=== PATIENT | female | born 1935 | race Caucasian/White ===

== ENCOUNTER 2016-06-26 11:21 | Emergency (ER) | payer OTHER ==
[~2016-06-26] VITALS: Ht 167.6 cm; Wt 83.0 kg
[~2016-06-26 11:21] MED LIST: ACET-1757 PO; ASPI-621 PO; ATOR40TA PO; BISA10SU2 PR; CEFU500T PO; CLOP75TA22 PO; CYCL-259 PO; DIPH1TAB6 PO; DOXY100C2 PO; FENO145T13 PO; FENO160T PO; GLUC1CAP14 PO; GLUC1CAP40 PO; GUAI5SYR PO; LORA-439 PO; LORA10TA72 PO; LOSA50TA6 PO; LOVA40TA2 PO; MELO-190 PO; METF500T4 PO; METO-95 PO; MULT-208 PO; PROB500T22 PO; SPIR50TA2 PO
[2016-06-26] MEDS ORDERED: DILTIAZEM 5 MG/ML, 5ML ONE (11:32)
[2016-06-26] MEDS ORDERED: METOPROLOL 1 MG/ML, 5ML ONE (11:36)
[2016-06-26] MEDS ORDERED: SODIUM CHLORIDE FLUSH 10ML SYR IVF ONE (12:00)
[2016-06-26] MEDS ORDERED: METOPROLOL 1 MG/ML, 5ML IVPush ONE (12:00)
[2016-06-26] MEDS ORDERED: SODIUM CHLORIDE 0.9% 1,000ML IVBOLUS ONE (12:00)
[2016-06-26 12:01] LABS: HEMOGLOBIN 11.8 g/dL (11.7-16.4)
[2016-06-26 12:10] LABS: BLOOD UREA NITROGEN 18 mg/dL (7-18)
[2016-06-26 12:14] LABS: IS PT STATUS REG ER OR PRE ER? YES
[2016-06-26] MEDS ORDERED: METOPROLOL SUCCINATE 25 MG TAB.ER.24H PO ONE (14:00)
[2016-06-26 15:05] VITALS: BP 132/56
== END 2016-06-26 15:07 | disposition home or self-care (01) ==
LOC: ED 14:30
DX: R00.0 Tachycardia, unspecified (principal); I10 Essential (primary) hypertension; E11.9 Type 2 diabetes mellitus without complications; I25.10 Atherosclerotic heart disease of native coronary artery without angina pectoris; E78.00 Pure hypercholesterolemia, unspecified
CPT/HCPCS: 36415; 71010; 80048; 82040; 84484; 85025; 85379; 85610; 85730; 93005; 96361; 96374; 99285; J7030

== ENCOUNTER 2018-07-27 08:07 | Observation (INO) | payer MEDICARE ==
[~2018-07-27] VITALS: Ht 167.6 cm; Wt 82.1 kg
[~2018-07-27 08:07] MED LIST changes: -ASPI-621 PO; +ASPI81TA45 PO; -CLOP75TA22 PO; +CLOP75TA52 PO; -FENO145T13 PO; +FENO145T30 PO; -GLUC1CAP14 PO; +GLUCOSAMINE 1,1 EACH PO; +LOSA50TA14 PO; -LOSA50TA6 PO; -MELO-190 PO; +MELO7.5T31 PO; +METF500T17 PO; -METF500T4 PO; -SPIR50TA2 PO; +SPIR50TA4 PO
--- NOTE | 2018-07-27 08:53 | NUR ---
Patient brought in by EMS for reported sudden onset dull left sided chest aching radiating to left shoulder with associated palpitations. IV started by EMS prior to arrival, blood glucose 205mg/dL on scene, aspirin 324mg administered prior to arrival. Patient arrives awake and appropriate, reports no change in chest discomfort and describes it as "a dull ache, it's just discomfort, just enough so I notice it's there but it isn't pain". Call ramírez placed within reach, continuous blood pressure, SPO2 and cardiac monitoring in place, call ramírez within reach.
[2018-07-27] MEDS ORDERED: ASPIRIN 81 MG TABLET CHEW PO ONE (09:00)
[2018-07-27] MEDS ORDERED: SODIUM CHLORIDE FLUSH 10ML SYR IVF ONE (09:00)
[2018-07-27] MEDS ORDERED: SODIUM CHLORIDE 0.9% 1,000ML IVBOLUS ONE (09:00)
[2018-07-27 09:38] LABS: BASOPHILS # (AUTO) 0.02 x10^3/uL (0-0.1); BASOPHILS % (AUTO) 0 % (0-1); EOSINOPHILS # (AUTO) 0.05 x10^3/uL (0-0.4); EOSINOPHILS % (AUTO) 1 % (1-7); LYMPHOCYTES # (AUTO) 1.06 x10^3/uL (1-3.4); LYMPHOCYTES % (AUTO) 16 % (22-44); MD NO; MEAN CORPUSCULAR HEMOGLOBIN 27.4 pg (27.0-34.8); MEAN CORPUSCULAR HGB CONC 31.9 g/dL (32.4-35.8); MEAN CORPUSCULAR VOLUME 85.9 fL (80-100); MEAN PLATELET VOLUME 9.6 fL (7.4-10.4); MONOCYTES # (AUTO) 0.57 x10^3/uL (0.2-0.8); MONOCYTES % (AUTO) 9 % (2-9); NEUTROPHILS # (AUTO) 4.81 x10^3/uL (1.8-6.8); NEUTROPHILS % (AUTO) 74 % (42-75); PLATELET COUNT 170 x10^3/uL (130-400); RED BLOOD COUNT 4.36 x10^6/uL (3.82-5.3)
[2018-07-27 09:43] LABS: INTERNATIONAL NORMALIZED RATIO 0.95 (0.93-1.1)
[2018-07-27 09:53] LABS: ALBUMIN 3.5 g/dL (3.4-5.0); ANION GAP 5 mmol/L (5-15); CALCIUM 9.7 mg/dL (8.5-10.1); CHLORIDE 113 mmol/L (98-107); CREATININE 1.13 mg/dL (0.55-1.02)
[2018-07-27 09:56] LABS: TROPONIN I < 0.015 ng/mL (0.000-0.045)
[2018-07-27] MEDS ORDERED: CALC-451 PO (10:28)
[2018-07-27] MEDS ORDERED: LOSA50TA14 PO (10:28)
--- NOTE | 2018-07-27 10:29 | NUR ---
Patient up to restroom, ambulates independently with a steady gait. Back to bed, water provided and diet tray ordered, OK per Dr. Herrera.
--- NOTE | 2018-07-27 10:53 | NUR ---
Report to SHERRELL Rojas; care transferred at this time.
[2018-07-27] MEDS ORDERED: NITROGLYCERIN OINT 2%, 1GM TP ONE ×2 (11:00→11:25)
[2018-07-27] MEDS ORDERED: GLUCAGON 1 MG IM PRN (11:30)
[2018-07-27] MEDS ORDERED: DOCUSATE 100 MG CAPSULE PO PRN (11:30)
[2018-07-27] MEDS ORDERED: NITROGLYCERIN 0.4 MG BOTTLE (25 TABS) SL PRN ×2 (11:30)
[2018-07-27] MEDS ORDERED: NITROGLYCERIN 0.4 MG/SPRAY SL PRN (11:30)
[2018-07-27] MEDS ORDERED: DEXTROSE 50%, 50ML SYRINGE IVPush PRN (11:30)
[2018-07-27] MEDS ORDERED: GUAIFENESIN/DM 200-20MG, 10ML UDC PO PRN (11:30)
[2018-07-27] MEDS ORDERED: LIDODERM 5% PATCH TD PRN (11:30)
[2018-07-27] MEDS ORDERED: DEXTROSE 4 GM TAB.CHEW PO PRN (11:30)
[2018-07-27] MEDS ORDERED: ONDANSETRON ODT 4 MG PO PRN (11:30)
[2018-07-27] MEDS ORDERED: hydrALAzine 20 MG/ML, 1ML IVPush PRN (11:30)
--- NOTE | 2018-07-27 11:38 | NUR ---
REPORT FROM MAGDALENE WYNNE AT 1100. PT C/O SLIGHT ACHE TO L CHEST AND FEELING COLD. WARM BLANKET PROVIDED, NTG PASTE GIVEN PER ERP ORDER. BP 170/63, DOWN NOW TO 153/54. CALL LIGHT WITHIN REACH, AWAITING ADMIT ROOM
--- NOTE | 2018-07-27 11:53 | NUR ---
REPORT TO JIMMY WYNNE, PT READY FOR TRANSPORT TO FLOOR.
[2018-07-27 12:04] LABS: TROPONIN I 0.024 ng/mL (0.000-0.045)
[2018-07-27 12:10] LABS: THYROID STIMULATING HORMONE 0.834 mIU/L (0.358-3.740)
[2018-07-27 12:22] VITALS: BP 176/81
[2018-07-27 12:50] VITALS: BP 147/78
[2018-07-27 13:00] VITALS: BP_SYST 147; BP_SYST 157; BP_DIAS 74; BP_DIAS 79
[2018-07-27 13:04] LABS: HEMOGLOBIN A1C 7.8 % (4.2-6.3)
[2018-07-27 13:22] VITALS: BP 152/74
[2018-07-27 13:23] VITALS: BP_SYST 151; BP_SYST 167; BP_DIAS 79
[2018-07-27] MEDS: HEPARIN 5,000 UNITS/ML, 1ML SQ SCH ×2 (13:59→21:40)
[2018-07-27] MEDS: ACETAMINOPHEN 325 MG TABLET PO PRN (13:59)
[2018-07-27] MEDS ORDERED: MAGNESIUM SULFATE 1 GM in SODIUM CHLORIDE 0.9% 50 ML IV ONE (15:30)
[2018-07-27] MEDS ORDERED: MAGNESIUM SULFATE PMX 2GM/50ML 0 ML ONE (16:32)
[2018-07-27 16:39] LABS: MICROSCOPIC AUTO
[2018-07-27 16:43] LABS: CULTURE INDICATED? YES
[2018-07-27] MEDS: SODIUM CHLORIDE FLUSH 10ML SYR IVF SCH ×2 (16:55→21:40)
[2018-07-27 17:29] LABS: TROPONIN I 0.059 ng/mL (0.000-0.045)
[2018-07-27] MEDS ORDERED: SIMETHICONE 80 MG CHEW TAB PO PRN (17:30)
[2018-07-27] MEDS: INSULIN LISPRO 100 UNITS/ML, PEN SQ-INSULIN SCH ×2 (17:57→21:41)
[2018-07-27 19:11] VITALS: BP 152/69
[2018-07-27] MEDS ORDERED: ALUMINUM/MAG/SIMETHICONE 30 ML UDC PO PRN (20:00)
[2018-07-27] MEDS ORDERED: ATORVASTATIN 40 MG TABLET PO SCH (21:00)
[2018-07-27] MEDS ORDERED: FENOFIBRATE 145 MG TABLET PO SCH (21:00)
[2018-07-27] MEDS ORDERED: [UNRECOGNIZED DRUG - OTHER] PO SCH (21:00)
[2018-07-27] MEDS ORDERED: ASPIRIN 81 MG TABLET EC PO SCH (21:00)
[2018-07-27] MEDS: PROBENECID 500 MG TABLET PO SCH (21:40)
[2018-07-28 00:42] VITALS: BP 158/64
[2018-07-28 05:05] LABS: BASOPHILS # (AUTO) 0.02 x10^3/uL (0-0.1); BASOPHILS % (AUTO) 0 % (0-1); EOSINOPHILS # (AUTO) 0.09 x10^3/uL (0-0.4); EOSINOPHILS % (AUTO) 2 % (1-7); LYMPHOCYTES # (AUTO) 1.35 x10^3/uL (1-3.4); LYMPHOCYTES % (AUTO) 24 % (22-44); MD NO; MEAN CORPUSCULAR HEMOGLOBIN 28.7 pg (27.0-34.8); MEAN CORPUSCULAR HGB CONC 33.8 g/dL (32.4-35.8); MEAN CORPUSCULAR VOLUME 84.8 fL (80-100); MEAN PLATELET VOLUME 9.9 fL (7.4-10.4); MONOCYTES # (AUTO) 0.51 x10^3/uL (0.2-0.8); MONOCYTES % (AUTO) 9 % (2-9); NEUTROPHILS # (AUTO) 3.76 x10^3/uL (1.8-6.8); NEUTROPHILS % (AUTO) 66 % (42-75); PLATELET COUNT 162 x10^3/uL (130-400); RED BLOOD COUNT 3.83 x10^6/uL (3.82-5.3); RED CELL DISTRIBUTION WIDTH 14.9 % (9.6-15.2)
[2018-07-28 05:12] LABS: CHLORIDE 113 mmol/L (98-107)
[2018-07-28 05:12] LABS: CLOSTRIDIUM DIFFICILE ANTIGEN NEGATIVE; CLOSTRIDIUM DIFFICILE TOXIN NEGATIVE (Negative)
[2018-07-28] MEDS: ACETAMINOPHEN 325 MG TABLET PO PRN ×2 (05:20→11:40)
[2018-07-28] MEDS: HEPARIN 5,000 UNITS/ML, 1ML SQ SCH ×2 (05:20→13:15)
[2018-07-28 05:23] LABS: ANION GAP 7 mmol/L (5-15); CALCIUM 9.3 mg/dL (8.5-10.1); CHOL/HDL RATIO 2.7; CHOLESTEROL, TOTAL 106 mg/dL (140-239); CREATININE 1.02 mg/dL (0.55-1.02); HDL CHOL % 37 % (28-40); HDL CHOLESTEROL (DIRECT) 39 mg/dL (40-60); LDL CHOLESTEROL,CALCULATED 20 mg/dL (54-169); LDL/HDL RATIO 0.5 (0.5-3.0); TRIGLYCERIDES 236 mg/dL (50-200); TROPONIN I 0.055 ng/mL (0.000-0.045); VLDL CHOLESTEROL 47 mg/dL (0-25)
[2018-07-28] MEDS ORDERED: PANTOPRAZOLE 20MG TABLET PO SCH (06:00)
[2018-07-28 07:13] VITALS: BP 133/70
[2018-07-28] MEDS ORDERED: REGADENOSON 0.4 MG/5 ML SYRINGE ONE (08:16)
[2018-07-28] MEDS ORDERED: CALCIUM/VITAMIN D3 250-125 TABLET PO SCH (09:00)
[2018-07-28] MEDS ORDERED: METOPROLOL SUCCINATE 100 MG TAB.ER.24H PO SCH (09:00)
[2018-07-28] MEDS: SODIUM CHLORIDE FLUSH 10ML SYR IVF SCH (09:00)
[2018-07-28] MEDS ORDERED: LORATADINE 10 MG TABLET PO SCH (09:00)
[2018-07-28] MEDS ORDERED: MULTIVITAMIN 1 TABLET PO SCH (09:00)
[2018-07-28] MEDS ORDERED: LOSARTAN 50MG TABLET PO SCH (09:00)
[2018-07-28] MEDS: INSULIN LISPRO 100 UNITS/ML, PEN SQ-INSULIN SCH ×2 (11:00→11:34)
[2018-07-28] MEDS: PROBENECID 500 MG TABLET PO SCH (11:33)
[2018-07-28] MEDS ORDERED: LEVOFLOXACIN 750 MG TABLET PO SCH (12:30)
[2018-07-28 13:10] VITALS: BP 128/72
[2018-07-28] MEDS ORDERED: SIME80TA16 PO (17:33)
[2018-07-28] MEDS ORDERED: PANT20TA3 PO (17:33)
[2018-07-28] MEDS ORDERED: LEVO750T26 PO (17:39)
== END 2018-07-28 18:46 | disposition home or self-care (01) ==
LOC: ED 09:25 → INTOOBSV 10:49 → EDIP 10:49 → UNDOADMOB 10:49 → EDIP 11:17 → 5SO 12:03 → UNDODISOB 07-28 18:46
PROVIDERS: ADMIT Internal Medicine; ATTEND Internal Medicine
DX: R07.89 Other chest pain (principal); K21.9 Gastro-esophageal reflux disease without esophagitis; R14.2 Eructation; I25.10 Atherosclerotic heart disease of native coronary artery without angina pectoris; I10 Essential (primary) hypertension; E11.9 Type 2 diabetes mellitus without complications; E78.00 Pure hypercholesterolemia, unspecified; D68.59 Other primary thrombophilia; M10.9 Gout, unspecified; F41.9 Anxiety disorder, unspecified; I25.2 Old myocardial infarction; I48.91 Unspecified atrial fibrillation; Z95.5 Presence of coronary angioplasty implant and graft; Z79.899 Other long term (current) drug therapy
CPT/HCPCS: 36415; 71045; 78452; 80048; 80061; 81001; 82040; 82962; 83036; 83735; 83880; 84439; 84443; 84484; 85025; 85610; 85730; 87077; 87086; 87186; 87324; 93005; 93017; 96365; 96372; 99284; A9502; C8929; C9898; G0378; J1644; J1815; J2785; J3475; J7030; Q9957

== ENCOUNTER 2019-04-03 21:58 | Observation (INO) | payer MEDICARE ==
[~2019-04-03] VITALS: Ht 167.6 cm; Wt 81.1 kg
[~2019-04-03 21:58] MED LIST changes: -ACET-1757 PO; +ACET-2065 PO; -BISA10SU2 PR; +BISA10SU4 PR; +CALC-451 PO; +FENO145T19 PO; -FENO145T30 PO; +LEVO750T26 PO; +PANT20TA3 PO; +SIME80TA16 PO
--- NOTE | 2019-04-03 22:10 | NUR ---
PT BIB EMS FROM HOME AFTER "FEELING LIKE HEART IS RACING" CAUSED SOME SOB. GIVEN [address] [employer]. IV IN PLACE [facility]. UPON ARRIVAL TO ER NO C/O PAIN. HR ORIGINALLY 140 BUT NOW 120. CONNECTED TO ALL MONITORING, TAHY HR AND HTN (STS DIDNT TAKE METOPROLOL TODAY). EKG DONE, MD AWARE. MD AT BEDSIDE FOR ASSESSMENT. AWAITING ORDERS AT THIS TIME. CALL LIGHT WITHIN REACH
[2019-04-03] MEDS ORDERED: METOPROLOL TARTRATE 50 MG TAB ONE (22:18)
[2019-04-03] MEDS ORDERED: LABETALOL 5MG/ML, 20ML ONE (22:18)
--- NOTE | 2019-04-03 22:27 | NUR ---
RAD COMPLETE. PT MEDICATED PER MAR
[2019-04-03] MEDS ORDERED: METOPROLOL TARTRATE 50 MG TAB PO ONE (22:30)
[2019-04-03] MEDS ORDERED: LABETALOL 5MG/ML, 20ML IVPush ONE (22:30)
--- NOTE | 2019-04-03 22:44 | NUR ---
REPORT GIVEN TO BONNIE WYNNE
[2019-04-03 22:51] LABS: BASOPHILS # (AUTO) 0.02 x10^3/uL (0-0.1); BASOPHILS % (AUTO) 0 % (0-1); EOSINOPHILS % (AUTO) 2 % (1-7); LYMPHOCYTES # (AUTO) 1.23 x10^3/uL (1-3.4); LYMPHOCYTES % (AUTO) 23 % (22-44); MD NO; MEAN CORPUSCULAR HEMOGLOBIN 27.7 pg (27.0-34.8); MEAN CORPUSCULAR HGB CONC 32.9 g/dL (32.4-35.8); MEAN CORPUSCULAR VOLUME 84.3 fL (80-100); MEAN PLATELET VOLUME 9.5 fL (7.4-10.4); MONOCYTES % (AUTO) 9 % (2-9); NEUTROPHILS # (AUTO) 3.59 x10^3/uL (1.8-6.8); NEUTROPHILS % (AUTO) 66 % (42-75); PLATELET COUNT 169 x10^3/uL (130-400); RED BLOOD COUNT 4.04 x10^6/uL (3.82-5.3); RED CELL DISTRIBUTION WIDTH 15.2 % (9.6-15.2)
--- NOTE | 2019-04-03 22:53 | NUR ---
Received report and assumed patient care. Reviewed patient's prior medical history especially cardiac history regarding stent placement in 2015. Also covered reason for calling EMS and tachycardia which is now improved/resolved. HR now in 90's (down from 160's per patient) and blood pressure has improved to 120 systolic (down fro 180's) and reviewed interventions completed in ER including administration of medications to improve heart rate. Patient just had labs drawn. Awaiting results prior to reassessment by provider.
[2019-04-03 23:01] LABS: ALBUMIN 3.2 g/dL (3.4-5.0); ANION GAP 7 mmol/L (5-15); CALCIUM 8.5 mg/dL (8.5-10.1); CHLORIDE 115 mmol/L (98-107); CREATININE 1.09 mg/dL (0.55-1.02)
[2019-04-03 23:05] LABS: TROPONIN I < 0.015 ng/mL (0.000-0.045)
[2019-04-04] MEDS ORDERED: BISACODYL 10 MG SUPP PR PRN (00:30)
[2019-04-04] MEDS ORDERED: PROMETHAZINE 25 MG/ML, 1ML IM PRN (00:30)
[2019-04-04] MEDS ORDERED: ONDANSETRON 2MG/ML, 2ML IVPush PRN (00:30)
[2019-04-04] MEDS ORDERED: ACETAMINOPHEN 325 MG TABLET PO PRN (00:30)
[2019-04-04] MEDS ORDERED: hydrALAzine 20 MG/ML, 1ML IVPush PRN (00:30)
[2019-04-04] MEDS ORDERED: DOCUSATE 100 MG CAPSULE PO PRN (00:30)
[2019-04-04] MEDS ORDERED: POLYETHYLENE GLYCOL 17 GM PACKET PO PRN (00:30)
[2019-04-04] MEDS ORDERED: HYDROcodone/APAP 5/325 TABLET PO PRN (00:30)
[2019-04-04] MEDS ORDERED: ONDANSETRON ODT 4 MG PO PRN (00:30)
[2019-04-04] MEDS ORDERED: ASPIRIN 81 MG TABLET EC ONE (01:07)
[2019-04-04] MEDS ORDERED: ENOXAPARIN 40 MG/0.4 ML ONE (01:07)
[2019-04-04 01:10] LABS: FREE T4 (FREE THYROXINE) 0.83 ng/dL (0.76-1.46)
[2019-04-04] MEDS: ASPIRIN 81 MG TABLET EC PO SCH ×2 (01:12→20:00)
[2019-04-04] MEDS: ENOXAPARIN 40 MG/0.4 ML SQ SCH (01:44)
[2019-04-04] MEDS: SODIUM CHLORIDE 0.9% 1,000 ML IV SCH ×2 (01:45→14:41)
[2019-04-04 02:03] LABS: TROPONIN I 0.021 ng/mL (0.000-0.045)
[2019-04-04] MEDS ORDERED: MAGNESIUM SULFATE PMX 2GM/50ML 50 ML IV ONE (02:30)
[2019-04-04] MEDS: FENOFIBRATE 145 MG TABLET PO SCH ×2 (02:48→20:01)
[2019-04-04 04:42] VITALS: BP 152/74
[2019-04-04] MEDS: PANTOPRAZOLE 20MG TABLET PO SCH (05:56)
[2019-04-04 07:02] LABS: MICROSCOPIC INDICATED
[2019-04-04 07:39] VITALS: BP 151/71
[2019-04-04] MEDS: CALCIUM/VITAMIN D3 250-125 TABLET PO SCH (09:00)
[2019-04-04] MEDS: METOPROLOL SUCCINATE 100 MG TAB.ER.24H PO SCH (09:00)
[2019-04-04 09:20] LABS: BASOPHILS # (AUTO) 0.02 x10^3/uL (0-0.1); BASOPHILS % (AUTO) 0 % (0-1); EOSINOPHILS # (AUTO) 0.11 x10^3/uL (0-0.4); EOSINOPHILS % (AUTO) 2 % (1-7); LYMPHOCYTES % (AUTO) 26 % (22-44); MD NO; MEAN CORPUSCULAR HEMOGLOBIN 27.4 pg (27.0-34.8); MEAN CORPUSCULAR VOLUME 85.8 fL (80-100); MEAN PLATELET VOLUME 9.3 fL (7.4-10.4); MONOCYTES # (AUTO) 0.54 x10^3/uL (0.2-0.8); MONOCYTES % (AUTO) 9 % (2-9); NEUTROPHILS # (AUTO) 3.58 x10^3/uL (1.8-6.8); NEUTROPHILS % (AUTO) 62 % (42-75); PLATELET COUNT 178 x10^3/uL (130-400); RED BLOOD COUNT 4.03 x10^6/uL (3.82-5.3); RED CELL DISTRIBUTION WIDTH 15.4 % (9.6-15.2)
[2019-04-04 09:32] LABS: TROPONIN I 0.018 ng/mL (0.000-0.045)
[2019-04-04 09:36] LABS: ALANINE AMINOTRANSFERASE 16 U/L (12-78); ALBUMIN 3.1 g/dL (3.4-5.0); ANION GAP 7 mmol/L (5-15); CALCIUM 8.1 mg/dL (8.5-10.1); CHLORIDE 114 mmol/L (98-107); CREATININE 0.93 mg/dL (0.55-1.02)
[2019-04-04 09:39] LABS: ALKALINE PHOSPHATASE 73 U/L (45-117); BILIRUBIN,TOTAL 0.2 mg/dL (0.2-1.0); TOTAL PROTEIN 6.3 g/dL (6.4-8.2)
[2019-04-04] MEDS ORDERED: LOSARTAN 25MG TABLET ONE (09:57)
[2019-04-04] MEDS: LOSARTAN 50MG TABLET PO SCH (09:58)
[2019-04-04] MEDS: LORATADINE 10 MG TABLET PO SCH (09:59)
[2019-04-04] MEDS: metFORMIN 500 MG TABLET PO SCH ×2 (10:00→20:00)
[2019-04-04] MEDS: MULTIVITAMIN 1 TABLET PO SCH (10:00)
[2019-04-04] MEDS: PROBENECID 500 MG TABLET PO SCH ×2 (10:00→20:01)
[2019-04-04] MEDS ORDERED: METO-99 PO (10:14)
[2019-04-04] MEDS ORDERED: GLUC1CAP48 PO (10:14)
[2019-04-04] MEDS ORDERED: METO-95 PO (10:55)
[2019-04-04 12:54] VITALS: BP 140/78
[2019-04-04 19:22] VITALS: BP 129/69
[2019-04-04] MEDS ORDERED: METOPROLOL TARTRATE 50 MG TAB PO ONE (21:00)
[2019-04-05] MEDS: ENOXAPARIN 40 MG/0.4 ML SQ SCH (00:33)
[2019-04-05 00:40] VITALS: BP 120/69
[2019-04-05 05:05] LABS: BASOPHILS # (AUTO) 0.04 x10^3/uL (0-0.1); BASOPHILS % (AUTO) 1 % (0-1); EOSINOPHILS # (AUTO) 0.15 x10^3/uL (0-0.4); EOSINOPHILS % (AUTO) 2 % (1-7); LYMPHOCYTES # (AUTO) 2.13 x10^3/uL (1-3.4); LYMPHOCYTES % (AUTO) 35 % (22-44); MD NO; MEAN CORPUSCULAR HEMOGLOBIN 27.3 pg (27.0-34.8); MEAN CORPUSCULAR HGB CONC 32.2 g/dL (32.4-35.8); MEAN PLATELET VOLUME 10.1 fL (7.4-10.4); MONOCYTES # (AUTO) 0.61 x10^3/uL (0.2-0.8); MONOCYTES % (AUTO) 10 % (2-9); NEUTROPHILS # (AUTO) 3.17 x10^3/uL (1.8-6.8); NEUTROPHILS % (AUTO) 52 % (42-75); PLATELET COUNT 176 x10^3/uL (130-400); RED BLOOD COUNT 3.52 x10^6/uL (3.82-5.3); RED CELL DISTRIBUTION WIDTH 14.7 % (9.6-15.2)
[2019-04-05 05:12] LABS: ALANINE AMINOTRANSFERASE 13 U/L (12-78); ALBUMIN 2.8 g/dL (3.4-5.0); ANION GAP 5 mmol/L (5-15); CALCIUM 8.7 mg/dL (8.5-10.1); CHLORIDE 115 mmol/L (98-107)
[2019-04-05 05:17] LABS: ALKALINE PHOSPHATASE 51 U/L (45-117); BILIRUBIN,TOTAL 0.4 mg/dL (0.2-1.0); CHOL/HDL RATIO 3.8; CHOLESTEROL, TOTAL 147 mg/dL (140-239); HDL CHOL % 27 % (28-40); HDL CHOLESTEROL (DIRECT) 39 mg/dL (40-60); LDL CHOLESTEROL,CALCULATED 77 mg/dL (54-169); TOTAL PROTEIN 5.6 g/dL (6.4-8.2); TRIGLYCERIDES 157 mg/dL (50-200); VLDL CHOLESTEROL 31 mg/dL (0-25)
[2019-04-05] MEDS: PANTOPRAZOLE 20MG TABLET PO SCH (06:04)
[2019-04-05 07:29] VITALS: BP 136/71
[2019-04-05 09:31] VITALS: BP 156/75
[2019-04-05] MEDS: CALCIUM/VITAMIN D3 250-125 TABLET PO SCH (09:42)
[2019-04-05] MEDS: PROBENECID 500 MG TABLET PO SCH (09:43)
[2019-04-05] MEDS: FENOFIBRATE 145 MG TABLET PO SCH (09:43)
[2019-04-05] MEDS: LORATADINE 10 MG TABLET PO SCH (09:43)
[2019-04-05] MEDS: MULTIVITAMIN 1 TABLET PO SCH (09:43)
[2019-04-05] MEDS: metFORMIN 500 MG TABLET PO SCH (09:43)
[2019-04-05] MEDS: LOSARTAN 50MG TABLET PO SCH (09:43)
[2019-04-05] MEDS: METOPROLOL SUCCINATE 100 MG TAB.ER.24H PO SCH (09:47)
== END 2019-04-05 13:15 | disposition home or self-care (01) ==
LOC: ED 04-04 00:02 → EDIP 04-04 00:17 → INTOOBSV 04-04 00:17 → 5SO 04-04 02:12 → DCLOUNGE 04-05 13:02
PROVIDERS: ADMIT Internal Medicine; ATTEND Internal Medicine
DX: R00.2 Palpitations (principal); R00.0 Tachycardia, unspecified; M10.9 Gout, unspecified; K21.9 Gastro-esophageal reflux disease without esophagitis; I48.91 Unspecified atrial fibrillation; E87.2 Acidosis; I25.10 Atherosclerotic heart disease of native coronary artery without angina pectoris; E78.5 Hyperlipidemia, unspecified; I25.2 Old myocardial infarction; I10 Essential (primary) hypertension; E11.65 Type 2 diabetes mellitus with hyperglycemia; C50.919 Malignant neoplasm of unspecified site of unspecified female breast; Z79.82 Long term (current) use of aspirin; Z79.84 Long term (current) use of oral hypoglycemic drugs; Z87.891 Personal history of nicotine dependence
CPT/HCPCS: 36415; 71045; 80048; 80053; 80061; 81001; 82040; 83036; 83735; 84439; 84443; 84484; 85025; 85379; 87086; 93005; 96361; 96372; 96374; 96375; 99284; G0378; J1650; J3475; J7030

== ENCOUNTER 2019-11-14 14:54 | Emergency (ER) | payer MEDICARE ==
[~2019-11-14] VITALS: Ht 167.6 cm; Wt 77.0 kg
[~2019-11-14 14:54] MED LIST changes: +GLUC1CAP48 PO; +METO-99 PO
--- NOTE | 2019-11-14 15:07 | NUR ---
PT BIB [facility] FOR C/O OF TACHYCARDIA. PT STATES SHE IS DEHYDRATED, AND HAS BEEN ANXIOUS. HR 154 ON [facility] ARRIVAL, GIVEN 350ML NS EN ROUTE, PT HR 122 ON ARRIVAL. HAS Hx OF THIS HAPPENING BEFORE IN 2011. DIAGNOSIS OF A-FIB. +ASA PT ATTACHED TO MONITORS, GIVEN WARM BLANKETS. EKG COMPLETED. DENIES ANY FURTHER NEEDS AT THIS TIME, CALL LIGHT IN REACH.
[2019-11-14] MEDS ORDERED: SODIUM CHLORIDE FLUSH 10ML SYR IVF ONE (16:00)
[2019-11-14 16:25] LABS: BASOPHILS # (AUTO) 0.02 x10^3/uL (0-0.1); BASOPHILS % (AUTO) 0 % (0-1); EOSINOPHILS # (AUTO) 0.08 x10^3/uL (0-0.4); EOSINOPHILS % (AUTO) 1 % (1-7); LYMPHOCYTES # (AUTO) 0.93 x10^3/uL (1-3.4); LYMPHOCYTES % (AUTO) 14 % (22-44); MD NO; MEAN CORPUSCULAR HEMOGLOBIN 27.4 pg (27.0-34.8); MEAN CORPUSCULAR HGB CONC 32.6 g/dL (32.4-35.8); MEAN PLATELET VOLUME 9.5 fL (7.4-10.4); MONOCYTES # (AUTO) 0.64 x10^3/uL (0.2-0.8); MONOCYTES % (AUTO) 10 % (2-9); NEUTROPHILS # (AUTO) 5.06 x10^3/uL (1.8-6.8); NEUTROPHILS % (AUTO) 75 % (42-75); PLATELET COUNT 172 x10^3/uL (130-400); RED BLOOD COUNT 4.21 x10^6/uL (3.82-5.3); RED CELL DISTRIBUTION WIDTH 14.9 % (9.6-15.2)
[2019-11-14 16:29] LABS: ALBUMIN 3.5 g/dL (3.4-5.0); ANION GAP 6 mmol/L (5-15); CALCIUM 8.5 mg/dL (8.5-10.1); CHLORIDE 111 mmol/L (98-107)
[2019-11-14 16:34] LABS: FREE T4 (FREE THYROXINE) 1.02 ng/dL (0.76-1.46); TROPONIN I < 0.015 ng/mL (0.000-0.045)
[2019-11-14 18:04] VITALS: BP 153/56
== END 2019-11-14 18:18 | disposition home or self-care (01) ==
LOC: ED 16:20
DX: R00.2 Palpitations (principal); R07.89 Other chest pain; R06.00 Dyspnea, unspecified; I10 Essential (primary) hypertension; E11.9 Type 2 diabetes mellitus without complications; I48.91 Unspecified atrial fibrillation; I25.2 Old myocardial infarction; I25.10 Atherosclerotic heart disease of native coronary artery without angina pectoris; R00.0 Tachycardia, unspecified; Z87.891 Personal history of nicotine dependence; Z90.10 Acquired absence of unspecified breast and nipple
CPT/HCPCS: 36415; 71045; 80048; 82040; 83735; 84439; 84443; 84484; 85025; 93005; 99285

== ENCOUNTER → 2019-12-12 | Outpatient (CLI) | payer MEDICARE ==
[~2019-12-12] MED LIST changes: -PANT20TA3 PO; +PANT20TA4 PO
== END | disposition home or self-care (01) ==
LOC: CVU 14:32
PROVIDERS: ATTEND Nurse Practitioner Family
DX: I08.8 Other rheumatic multiple valve diseases (principal); I10 Essential (primary) hypertension; I25.10 Atherosclerotic heart disease of native coronary artery without angina pectoris
CPT/HCPCS: C8929; Q9957

== ENCOUNTER 2020-08-30 21:36 | Inpatient (IN) | payer MEDICARE ==
[~2020-08-30] VITALS: Ht 165.1 cm; Wt 80.4 kg
[~2020-08-30 21:36] MED LIST changes: -CYCL-259 PO; +CYCL10TA2 PO
--- NOTE | 2020-08-30 21:42 | NUR ---
THIS IS AN 84F BIB EMS FROM HOME FOR WORSENING SOB AND FEVER, PT FOUND TO BE 87% RA PER EMS, PT DENIES RESP HX. PT CONNECTED TO ALL MONITORING.
[2020-08-30] MEDS ORDERED: CEFTRIAXONE 1,000 MG in DEXTROSE 5% 50 ML IVPB ONE (22:30)
[2020-08-30] MEDS ORDERED: AZITHROMYCIN 500 MG in SODIUM CHLORIDE 0.9% 250 ML IV ONE (22:30)
[2020-08-30] MEDS ORDERED: SODIUM CHLORIDE 0.9% 1,000ML IVBOLUS ONE ×2 (22:30→23:00)
--- NOTE | 2020-08-30 22:41 | NUR ---
CULTURES DRAWN X2 PRIOR TO ABX START
[2020-08-30 22:52] LABS: ALANINE AMINOTRANSFERASE 21 U/L (12-78); ALBUMIN 2.6 g/dL (3.4-5.0); ANION GAP 13 mmol/L (5-15); CALCIUM 9.5 mg/dL (8.5-10.1); CHLORIDE 97 mmol/L (98-107)
[2020-08-30 22:53] LABS: BASOPHILS % (AUTO) 0 % (0-1); EOSINOPHILS % (AUTO) 0 % (1-7); LYMPHOCYTES % (AUTO) 4 % (22-44); MEAN CORPUSCULAR HEMOGLOBIN 27.3 pg (27.0-34.8); MEAN CORPUSCULAR HGB CONC 33.1 g/dL (32.4-35.8); MEAN PLATELET VOLUME 9.4 fL (7.4-10.4); MONOCYTES % (AUTO) 18 % (2-9); NEUTROPHILS % (AUTO) 78 % (42-75); PLATELET COUNT 252 x10^3/uL (130-400); RED BLOOD COUNT 3.96 x10^6/uL (3.82-5.3); RED CELL DISTRIBUTION WIDTH 15.5 % (9.6-15.2)
[2020-08-30 22:57] LABS: ALKALINE PHOSPHATASE 124 U/L (45-117); BILIRUBIN,TOTAL 0.7 mg/dL (0.2-1.0); CREATININE 1.22 mg/dL (0.55-1.02); TOTAL PROTEIN 8.1 g/dL (6.4-8.2); TROPONIN I < 0.015 ng/mL (0.000-0.045)
--- NOTE | 2020-08-30 23:02 | NUR ---
ERP TO BEDSIDE FOR REASSESS AND POC
[2020-08-30] MEDS ORDERED: ACETAMINOPHEN 500 MG TABLET ONE (23:14)
[2020-08-30] MEDS ORDERED: ACETAMINOPHEN 500 MG TABLET PO ONE (23:30)
--- NOTE | 2020-08-31 00:01 | NUR ---
PT RESTING ON GURNEY LIGHTS DIMMED FOR COMFORT AT THIS TIME.
--- NOTE | 2020-08-31 00:09 | NUR ---
REPORT TO LOU MARSHALL READY FOR TRANSFER TO [phone]
--- NOTE | 2020-08-31 00:13 | NUR ---
VANESSA AT BEDSIDE
[2020-08-31] MEDS ORDERED: LABETALOL 5MG/ML, 20ML IVPush PRN (01:00)
[2020-08-31] MEDS: AZITHROMYCIN 500 MG in SODIUM CHLORIDE 0.9% 250 ML IV SCH (01:00)
[2020-08-31] MEDS ORDERED: SODIUM CHLORIDE 0.9% 1,000 ML IV SCH (01:00)
[2020-08-31] MEDS ORDERED: ONDANSETRON 2MG/ML, 2ML IVPush PRN (01:00)
[2020-08-31] MEDS: CEFTRIAXONE 1,000 MG in DEXTROSE 5% 50 ML IVPB SCH ×2 (01:00→13:00)
[2020-08-31] MEDS ORDERED: morphine SULFATE 10 MG/ML, 1ML IVPush PRN (01:00)
[2020-08-31] MEDS ORDERED: ACETAMINOPHEN 325 MG TABLET PO PRN (01:00)
[2020-08-31 01:20] VITALS: BP 143/94
[2020-08-31] MEDS ORDERED: ATOR40TA PO (01:52)
[2020-08-31] MEDS ORDERED: CARB15DR3 EACHEYE (01:52)
[2020-08-31] MEDS ORDERED: VIT1CAPS11 PO (01:52)
[2020-08-31] MEDS ORDERED: METO-99 PO (01:52)
[2020-08-31] MEDS ORDERED: OMEG100023 PO (01:52)
[2020-08-31] MEDS ORDERED: METO50TA82 PO (01:52)
[2020-08-31] MEDS: ENOXAPARIN 40 MG/0.4 ML SQ SCH (02:30)
[2020-08-31 05:13] LABS: MEAN CORPUSCULAR HEMOGLOBIN 27.1 pg (27.0-34.8); MEAN CORPUSCULAR HGB CONC 32.6 g/dL (32.4-35.8); MEAN PLATELET VOLUME 9.1 fL (7.4-10.4); PLATELET COUNT 262 x10^3/uL (130-400); RED BLOOD COUNT 3.53 x10^6/uL (3.82-5.3); RED CELL DISTRIBUTION WIDTH 15.5 % (9.6-15.2)
[2020-08-31 05:18] LABS: ANION GAP 11 mmol/L (5-15); CALCIUM 8.4 mg/dL (8.5-10.1); CHLORIDE 105 mmol/L (98-107); CREATININE 1.07 mg/dL (0.55-1.02)
[2020-08-31 06:04] LABS: BAND#(MANUAL) 1.42 x10^3/uL; BANDS%(MANUAL) 10 % (0-7); LYMPH#(MANUAL) 1.28 x10^3/uL (1-3.4); LYMPHS% (MANUAL) 9 % (22-44); MONOS#(MANUAL) 2.27 x10^3/uL (0.3-2.7); MONOS% (MANUAL) 16 % (2-9); SEG#(MANUAL) 9.23 x10^3/uL (1.8-6.8); SEGS% (MANUAL) 65 % (42-75)
[2020-08-31 06:05] LABS: POLYCHROMASIA 1+
[2020-08-31 06:06] LABS: <PLATELET ESTIMATE> ADEQUATE; <PLT MORPHOLOGY> NORMAL PLT MORPH; ECHINOCYTES 1+; OVALOCYTES 1+
[2020-08-31 07:43] VITALS: BP 197/76
[2020-08-31] MEDS: ACETAMINOPHEN 325 MG TABLET PO SCH ×3 (08:00→21:42)
[2020-08-31] MEDS: LOSARTAN 50MG TABLET PO SCH (08:17)
[2020-08-31] MEDS: LORATADINE 10 MG TABLET PO SCH (08:17)
[2020-08-31] MEDS: K-PHOS NEUTRAL 250MG TAB PO SCH ×2 (08:17→21:43)
[2020-08-31] MEDS: INSULIN LISPRO 100 UNITS/ML, PEN SQ-INSULIN SCH ×4 (08:17→22:12)
[2020-08-31] MEDS: METOPROLOL TARTRATE 50 MG TAB PO SCH ×2 (08:24→16:59)
[2020-08-31 12:58] VITALS: BP 119/63
[2020-08-31 13:00] LABS: IRON LEVEL 15 mcg/dL (50-170)
[2020-08-31 13:29] LABS: % IRON SATURATION 6 % (20-55); TOTAL IRON BINDING CAPACITY 233 mcg/dL (250-450)
[2020-08-31] MEDS: GUAIFENESIN/COD200MG-20MG/10ML LIQUID PO PRN (16:59)
[2020-08-31] MEDS ORDERED: TEMPLATE NON-FORMULARY MED. (Fenofibrate** 160 MG) PO SCH (21:00)
[2020-08-31 21:39] VITALS: BP 122/69
[2020-08-31] MEDS: ATORVASTATIN 40 MG TABLET PO SCH (21:43)
[2020-08-31] MEDS: ASPIRIN 81 MG TABLET EC PO SCH (21:43)
[2020-08-31] MEDS: INSULIN GLARGINE 100 UNITS/ML, PEN SQ-INSULIN SCH (22:13)
[2020-09-01 01:20] VITALS: BP 104/62
[2020-09-01] MEDS: CEFTRIAXONE 1,000 MG in DEXTROSE 5% 50 ML IVPB SCH ×2 (01:29→13:51)
[2020-09-01] MEDS: ACETAMINOPHEN 325 MG TABLET PO SCH ×4 (01:29→21:28)
[2020-09-01] MEDS: ENOXAPARIN 40 MG/0.4 ML SQ SCH (01:29)
[2020-09-01] MEDS: AZITHROMYCIN 500 MG in SODIUM CHLORIDE 0.9% 250 ML IV SCH (02:20)
[2020-09-01] MEDS ORDERED: ALBUTEROL SULFATE 2.5 MG/3 ML NPPB PRN (02:30)
[2020-09-01 05:09] LABS: MEAN CORPUSCULAR HEMOGLOBIN 27.3 pg (27.0-34.8); MEAN CORPUSCULAR HGB CONC 33.2 g/dL (32.4-35.8); MEAN PLATELET VOLUME 8.9 fL (7.4-10.4); PLATELET COUNT 220 x10^3/uL (130-400); RED BLOOD COUNT 2.92 x10^6/uL (3.82-5.3)
[2020-09-01 05:21] LABS: ANION GAP 8 mmol/L (5-15); CALCIUM 8.7 mg/dL (8.5-10.1); CHLORIDE 107 mmol/L (98-107)
[2020-09-01 05:23] LABS: CREATININE 1.75 mg/dL (0.55-1.02)
[2020-09-01 05:54] LABS: BAND#(MANUAL) 0.11 x10^3/uL; BANDS%(MANUAL) 1 % (0-7); LYMPH#(MANUAL) 1.44 x10^3/uL (1-3.4); LYMPHS% (MANUAL) 13 % (22-44); METAMYELOCYTES# (MANUAL) 0.11 x10^3/uL (0-0); METAMYELOCYTES% (MANUAL) 1 % (0-1); MONOS#(MANUAL) 1.67 x10^3/uL (0.3-2.7); MONOS% (MANUAL) 15 % (2-9); SEG#(MANUAL) 7.77 x10^3/uL (1.8-6.8); SEGS% (MANUAL) 70 % (42-75)
[2020-09-01 05:56] LABS: <PLATELET ESTIMATE> ADEQUATE; <PLT MORPHOLOGY> NORMAL PLT MORPH; ANISOCYTOSIS 1+; ECHINOCYTES 1+; OVALOCYTES 1+
[2020-09-01] MEDS: PANTOPRAZOLE 20MG TABLET PO SCH (06:14)
[2020-09-01] MEDS: METOPROLOL TARTRATE 50 MG TAB PO SCH ×2 (06:14→17:24)
[2020-09-01 07:04] VITALS: BP 124/72
[2020-09-01] MEDS: LORATADINE 10 MG TABLET PO SCH (08:52)
[2020-09-01] MEDS: LOSARTAN 50MG TABLET PO SCH (08:52)
[2020-09-01] MEDS: INSULIN LISPRO 100 UNITS/ML, PEN SQ-INSULIN SCH ×4 (09:04→21:29)
[2020-09-01 12:34] VITALS: BP 122/71
[2020-09-01 19:08] VITALS: BP 145/72
[2020-09-01] MEDS: FENOFIBRATE 145 MG TABLET PO SCH (21:28)
[2020-09-01] MEDS: ATORVASTATIN 40 MG TABLET PO SCH (21:28)
[2020-09-01] MEDS: ASPIRIN 81 MG TABLET EC PO SCH (21:28)
[2020-09-01] MEDS: INSULIN GLARGINE 100 UNITS/ML, PEN SQ-INSULIN SCH (21:29)
[2020-09-02] MEDS: CEFTRIAXONE 1,000 MG in DEXTROSE 5% 50 ML IVPB SCH ×2 (00:51→14:14)
[2020-09-02 01:12] VITALS: BP 144/67
[2020-09-02] MEDS ORDERED: ENOXAPARIN 30 MG/0.3 ML SQ SCH (01:30)
[2020-09-02] MEDS: AZITHROMYCIN 500 MG in SODIUM CHLORIDE 0.9% 250 ML IV SCH (01:38)
[2020-09-02] MEDS: ACETAMINOPHEN 325 MG TABLET PO SCH ×4 (03:24→21:21)
[2020-09-02 05:43] LABS: MEAN CORPUSCULAR HEMOGLOBIN 27.6 pg (27.0-34.8); MEAN CORPUSCULAR HGB CONC 33.4 g/dL (32.4-35.8); MEAN PLATELET VOLUME 8.6 fL (7.4-10.4); PLATELET COUNT 239 x10^3/uL (130-400); RED BLOOD COUNT 2.81 x10^6/uL (3.82-5.3); RED CELL DISTRIBUTION WIDTH 15.9 % (9.6-15.2)
[2020-09-02 05:52] LABS: ALANINE AMINOTRANSFERASE 37 U/L (12-78); ALBUMIN 1.6 g/dL (3.4-5.0); ANION GAP 9 mmol/L (5-15); CALCIUM 8.3 mg/dL (8.5-10.1); CHLORIDE 100 mmol/L (98-107); CREATININE 1.14 mg/dL (0.55-1.02)
[2020-09-02 05:53] LABS: ALKALINE PHOSPHATASE 124 U/L (45-117); BILIRUBIN,TOTAL 0.4 mg/dL (0.2-1.0)
[2020-09-02] MEDS: METOPROLOL TARTRATE 50 MG TAB PO SCH ×2 (06:05→17:36)
[2020-09-02] MEDS: PANTOPRAZOLE 20MG TABLET PO SCH (06:05)
[2020-09-02 06:23] LABS: BAND#(MANUAL) 0.51 x10^3/uL; BANDS%(MANUAL) 5 % (0-7); BASOS% (MANUAL) 1 % (0-1); EOS% (MANUAL) 1 % (1-7); LYMPHS% (MANUAL) 4 % (22-44); METAMYELOCYTES% (MANUAL) 1 % (0-1); MONOS#(MANUAL) 0.81 x10^3/uL (0.3-2.7); MONOS% (MANUAL) 8 % (2-9); MYELOCYTES% (MANUAL) 1 % (0-0)
[2020-09-02 06:25] LABS: SEGS% (MANUAL) 79 % (42-75)
[2020-09-02 06:26] LABS: ANISOCYTOSIS 1+; SEG#(MANUAL) 7.98 x10^3/uL (1.8-6.8)
[2020-09-02 06:27] LABS: <PLATELET ESTIMATE> ADEQUATE; <PLT MORPHOLOGY> NORMAL PLT MORPH; OVALOCYTES 1+; TOXIC GRAN 1+
[2020-09-02] MEDS: INSULIN LISPRO 100 UNITS/ML, PEN SQ-INSULIN SCH ×4 (07:00→21:37)
[2020-09-02 07:02] VITALS: BP 115/68
[2020-09-02 09:55] VITALS: BP 120/70
[2020-09-02] MEDS: LORATADINE 10 MG TABLET PO SCH (09:58)
[2020-09-02] MEDS: LOSARTAN 50MG TABLET PO SCH (09:58)
[2020-09-02 13:07] VITALS: BP 130/71
[2020-09-02 18:55] VITALS: BP 129/69
[2020-09-02] MEDS: ASPIRIN 81 MG TABLET EC PO SCH (21:21)
[2020-09-02] MEDS: FENOFIBRATE 145 MG TABLET PO SCH (21:22)
[2020-09-02] MEDS: ATORVASTATIN 40 MG TABLET PO SCH (21:22)
[2020-09-02] MEDS: INSULIN GLARGINE 100 UNITS/ML, PEN SQ-INSULIN SCH (21:38)
[2020-09-03 00:58] VITALS: BP 128/72
[2020-09-03] MEDS: CEFTRIAXONE 1,000 MG in DEXTROSE 5% 50 ML IVPB SCH ×2 (01:29→13:55)
[2020-09-03] MEDS: AZITHROMYCIN 500 MG in SODIUM CHLORIDE 0.9% 250 ML IV SCH (02:08)
[2020-09-03] MEDS: ACETAMINOPHEN 325 MG TABLET PO SCH ×4 (03:42→20:57)
[2020-09-03 05:36] VITALS: BP 159/71
[2020-09-03] MEDS: METOPROLOL TARTRATE 50 MG TAB PO SCH ×2 (05:36→17:55)
[2020-09-03] MEDS: PANTOPRAZOLE 20MG TABLET PO SCH (05:36)
[2020-09-03] MEDS: INSULIN LISPRO 100 UNITS/ML, PEN SQ-INSULIN SCH ×4 (07:55→20:57)
[2020-09-03 08:15] VITALS: BP 112/67
[2020-09-03 08:29] LABS: ANION GAP 9 mmol/L (5-15); CALCIUM 9.2 mg/dL (8.5-10.1); CHLORIDE 103 mmol/L (98-107); CREATININE 0.75 mg/dL (0.55-1.02)
[2020-09-03] MEDS: LOSARTAN 50MG TABLET PO SCH (09:10)
[2020-09-03] MEDS: LORATADINE 10 MG TABLET PO SCH (09:10)
[2020-09-03] MEDS: ENOXAPARIN 40 MG/0.4 ML SQ SCH (09:10)
[2020-09-03] MEDS ORDERED: FUROSEMIDE 20 MG/2 ML IV ONE (14:30)
[2020-09-03] MEDS: methylPREDNISolone SOD SUCC 40 MG/ML IVPush SCH ×2 (14:42→20:55)
[2020-09-03 15:59] VITALS: BP 150/80
[2020-09-03 19:03] VITALS: BP 147/73
[2020-09-03] MEDS: INSULIN GLARGINE 100 UNITS/ML, PEN SQ-INSULIN SCH (20:56)
[2020-09-03] MEDS: ASPIRIN 81 MG TABLET EC PO SCH (20:57)
[2020-09-03] MEDS: FENOFIBRATE 145 MG TABLET PO SCH (20:57)
[2020-09-03] MEDS: ATORVASTATIN 40 MG TABLET PO SCH (20:57)
[2020-09-04 00:14] VITALS: BP 151/78
[2020-09-04] MEDS: CEFTRIAXONE 1,000 MG in DEXTROSE 5% 50 ML IVPB SCH ×2 (01:51→13:21)
[2020-09-04] MEDS: AZITHROMYCIN 500 MG in SODIUM CHLORIDE 0.9% 250 ML IV SCH (02:48)
[2020-09-04] MEDS: methylPREDNISolone SOD SUCC 40 MG/ML IVPush SCH ×4 (02:49→20:36)
[2020-09-04] MEDS: ACETAMINOPHEN 325 MG TABLET PO SCH ×4 (02:49→20:36)
[2020-09-04] MEDS: PANTOPRAZOLE 20MG TABLET PO SCH (05:37)
[2020-09-04] MEDS: METOPROLOL TARTRATE 50 MG TAB PO SCH ×2 (05:37→17:17)
[2020-09-04 05:48] LABS: MEAN CORPUSCULAR HEMOGLOBIN 27.4 pg (27.0-34.8); MEAN CORPUSCULAR HGB CONC 33.3 g/dL (32.4-35.8); MEAN PLATELET VOLUME 8.4 fL (7.4-10.4); PLATELET COUNT 276 x10^3/uL (130-400); RED BLOOD COUNT 2.98 x10^6/uL (3.82-5.3); RED CELL DISTRIBUTION WIDTH 16.2 % (9.6-15.2)
[2020-09-04 05:55] LABS: CHLORIDE 101 mmol/L (98-107)
[2020-09-04 06:05] LABS: ALANINE AMINOTRANSFERASE 43 U/L (12-78); ALBUMIN 1.6 g/dL (3.4-5.0); ALKALINE PHOSPHATASE 167 U/L (45-117); ANION GAP 7 mmol/L (5-15); BILIRUBIN,TOTAL 0.4 mg/dL (0.2-1.0); CALCIUM 8.8 mg/dL (8.5-10.1); CREATININE 0.77 mg/dL (0.55-1.02); TOTAL PROTEIN 6.5 g/dL (6.4-8.2)
[2020-09-04 06:11] VITALS: BP 145/74
[2020-09-04 06:27] LABS: BAND#(MANUAL) 0.06 x10^3/uL; BANDS%(MANUAL) 1 % (0-7); LYMPH#(MANUAL) 0.38 x10^3/uL (1-3.4); LYMPHS% (MANUAL) 6 % (22-44); METAMYELOCYTES# (MANUAL) 0.13 x10^3/uL (0-0); METAMYELOCYTES% (MANUAL) 2 % (0-1); MYELOCYTES# (MANUAL) 0.06 x10^3/uL (0-0); MYELOCYTES% (MANUAL) 1 % (0-0); SEG#(MANUAL) 5.76 x10^3/uL (1.8-6.8); SEGS% (MANUAL) 90 % (42-75)
[2020-09-04 06:28] LABS: ANISOCYTOSIS 1+; OVALOCYTES 1+
[2020-09-04 06:29] LABS: <PLATELET ESTIMATE> ADEQUATE; <PLT MORPHOLOGY> NORMAL PLT MORPH
[2020-09-04] MEDS: INSULIN LISPRO 100 UNITS/ML, PEN SQ-INSULIN SCH ×4 (07:48→20:35)
[2020-09-04] MEDS: ENOXAPARIN 40 MG/0.4 ML SQ SCH (09:32)
[2020-09-04] MEDS: LOSARTAN 50MG TABLET PO SCH (09:32)
[2020-09-04] MEDS: LORATADINE 10 MG TABLET PO SCH (09:32)
[2020-09-04 12:01] VITALS: BP 111/62
[2020-09-04] MEDS: GUAIFENESIN/COD200MG-20MG/10ML LIQUID PO PRN (13:21)
[2020-09-04] MEDS: FUROSEMIDE 20 MG/2 ML IV SCH (14:50)
[2020-09-04 19:12] VITALS: BP 159/63
[2020-09-04 19:25] LABS: OCCULT BLOOD NEGATIVE (NEGATIVE)
[2020-09-04] MEDS: ASPIRIN 81 MG TABLET EC PO SCH (20:36)
[2020-09-04] MEDS: FENOFIBRATE 145 MG TABLET PO SCH (20:36)
[2020-09-04] MEDS: ATORVASTATIN 40 MG TABLET PO SCH (20:36)
[2020-09-04] MEDS ORDERED: INSULIN GLARGINE 100 UNITS/ML, PEN SQ-INSULIN SCH ×2 (21:00)
[2020-09-05 00:26] VITALS: BP 134/81
[2020-09-05] MEDS: CEFTRIAXONE 1,000 MG in DEXTROSE 5% 50 ML IVPB SCH ×2 (01:05→13:18)
[2020-09-05] MEDS: methylPREDNISolone SOD SUCC 40 MG/ML IVPush SCH ×3 (02:18→15:01)
[2020-09-05] MEDS: AZITHROMYCIN 500 MG in SODIUM CHLORIDE 0.9% 250 ML IV SCH (02:19)
[2020-09-05] MEDS: ACETAMINOPHEN 325 MG TABLET PO SCH ×3 (02:19→15:02)
[2020-09-05 04:41] LABS: BASOPHILS % (AUTO) 0 % (0-1); EOSINOPHILS % (AUTO) 0 % (1-7); LYMPHOCYTES % (AUTO) 4 % (22-44); MEAN CORPUSCULAR HEMOGLOBIN 27.4 pg (27.0-34.8); MEAN CORPUSCULAR HGB CONC 33.7 g/dL (32.4-35.8); MONOCYTES % (AUTO) 8 % (2-9); NEUTROPHILS % (AUTO) 87 % (42-75); PLATELET COUNT 324 x10^3/uL (130-400); RED BLOOD COUNT 3.06 x10^6/uL (3.82-5.3); RED CELL DISTRIBUTION WIDTH 16.3 % (9.6-15.2)
[2020-09-05 04:47] LABS: ANION GAP 6 mmol/L (5-15); CALCIUM 9.1 mg/dL (8.5-10.1); CHLORIDE 101 mmol/L (98-107); CREATININE 0.89 mg/dL (0.55-1.02)
[2020-09-05] MEDS: PANTOPRAZOLE 20MG TABLET PO SCH (05:32)
[2020-09-05] MEDS: METOPROLOL TARTRATE 50 MG TAB PO SCH ×2 (05:33→17:40)
[2020-09-05 07:40] VITALS: BP 134/74
[2020-09-05] MEDS: INSULIN LISPRO 100 UNITS/ML, PEN SQ-INSULIN SCH ×3 (08:14→17:40)
[2020-09-05] MEDS: LOSARTAN 50MG TABLET PO SCH (08:15)
[2020-09-05] MEDS: ENOXAPARIN 40 MG/0.4 ML SQ SCH (08:15)
[2020-09-05] MEDS: FUROSEMIDE 20 MG/2 ML IV SCH (08:15)
[2020-09-05] MEDS: GUAIFENESIN/COD200MG-20MG/10ML LIQUID PO PRN (08:15)
[2020-09-05] MEDS: LORATADINE 10 MG TABLET PO SCH (08:16)
[2020-09-05] MEDS ORDERED: INSULIN LISPRO 100 UNITS/ML, PEN SQ-INSULIN ONE (13:35)
[2020-09-05 15:39] VITALS: BP 157/71
[2020-09-05] MEDS ORDERED: IPRA3AMP30 NEB (16:05)
[2020-09-05] MEDS ORDERED: LACT1TAB13 PO (16:05)
[2020-09-05] MEDS ORDERED: ALBU2.5V NEB (16:05)
[2020-09-05] MEDS ORDERED: PRED10TA PO (16:05)
[2020-09-05] MEDS ORDERED: FURO40TA6 PO (16:05)
[2020-09-05] MEDS ORDERED: CEFD300C37 PO (16:05)
[2020-09-05] MEDS ORDERED: METO50TA82 PO (16:05)
[2020-09-05] MEDS ORDERED: INSULIN LISPRO 100 UNITS/ML, PEN SQ-INSULIN SCH (17:00)
[2020-09-06] MEDS ORDERED: FUROSEMIDE 40 MG TABLET PO SCH (09:00)
== END 2020-09-05 19:15 | disposition home health service (06) | DRG 871 ==
LOC: ED 23:34 → EDIP 23:47 → 5SO 08-31 01:10 → 4WST 09-03 18:50
PROVIDERS: ADMIT Family Medicine; ATTEND Internal Medicine
DX: A41.9 Sepsis, unspecified organism (principal); J15.9 Unspecified bacterial pneumonia; I50.33 Acute on chronic diastolic (congestive) heart failure; J96.21 Acute and chronic respiratory failure with hypoxia; N17.0 Acute kidney failure with tubular necrosis; E87.1 Hypo-osmolality and hyponatremia; I13.0 Hypertensive heart and chronic kidney disease with heart failure and stage 1 through stage 4 chronic kidney disease, or unspecified chronic kidney disease; J44.0 Chronic obstructive pulmonary disease with (acute) lower respiratory infection; D63.8 Anemia in other chronic diseases classified elsewhere; E11.22 Type 2 diabetes mellitus with diabetic chronic kidney disease; E11.51 Type 2 diabetes mellitus with diabetic peripheral angiopathy without gangrene; E11.65 Type 2 diabetes mellitus with hyperglycemia; E78.5 Hyperlipidemia, unspecified; E83.39 Other disorders of phosphorus metabolism; F41.1 Generalized anxiety disorder; I07.1 Rheumatic tricuspid insufficiency; I25.10 Atherosclerotic heart disease of native coronary artery without angina pectoris; I25.2 Old myocardial infarction; I27.20 Pulmonary hypertension, unspecified; I35.0 Nonrheumatic aortic (valve) stenosis; I37.1 Nonrheumatic pulmonary valve insufficiency; I48.91 Unspecified atrial fibrillation; K21.9 Gastro-esophageal reflux disease without esophagitis; M10.9 Gout, unspecified; N18.30 Chronic kidney disease, stage 3 unspecified; Z79.84 Long term (current) use of oral hypoglycemic drugs; Z82.49 Family history of ischemic heart disease and other diseases of the circulatory system; Z85.3 Personal history of malignant neoplasm of breast; Z87.891 Personal history of nicotine dependence; Z90.13 Acquired absence of bilateral breasts and nipples; Z95.5 Presence of coronary angioplasty implant and graft; M19.90 Unspecified osteoarthritis, unspecified site; Z88.8 Allergy status to other drugs, medicaments and biological substances
CPT/HCPCS: 36415; 70450; 71045; 80048; 80053; 82272; 82607; 82728; 82947; 82962; 83036; 83540; 83550; 83605; 83735; 83880; 84100; 84145; 84443; 84484; 85025; 87040; 93005; 94640; 96374; 96375; C8929; G0378; J0456; J0696; J1650; J2405; J7613; Q9957; J1815; J1940; J2920; J7030; J7050

== ENCOUNTER 2020-12-16 08:09 | Outpatient (CLI) | payer MEDICARE ==
[~2020-12-16 08:09] MED LIST changes: +ALBU2.5V NEB; +CARB15DR3 EACHEYE; +CEFD300C37 PO; -DOXY100C2 PO; +DOXY100C5 PO; +FURO40TA6 PO; +IPRA3AMP30 NEB; +LACT1TAB13 PO; +METO50TA82 PO; +OMEG100023 PO; +PRED10TA PO; +REGADENOSON 0.4 MG/5 ML SYRINGE ONE; +VIT1CAPS11 PO
== END 2020-12-16 23:59 | disposition home or self-care (01) ==
LOC: CFH 08:09
PROVIDERS: ATTEND Internal Medicine Cardiovascular Disease
DX: I25.10 Atherosclerotic heart disease of native coronary artery without angina pectoris (principal); I25.2 Old myocardial infarction; I10 Essential (primary) hypertension; I47.1 Supraventricular tachycardia
CPT/HCPCS: 78452; 93017; A9502; J2785